=== PATIENT | male | born 1945 | race Caucasian/White ===

== ENCOUNTER 2017-09-28 11:28 | Inpatient (IN) | payer OTHER, MEDICARE, BC ==
[~2017-09-28] VITALS: Ht 180.3 cm; Wt 105.0 kg
[~2017-09-28 11:28] MED LIST: ALLO100T PO; ASPI-611 PO; GABA600T2 PO; LOSA25TA96 PO; TRIA1CAP6 PO
[2017-09-28] MEDS ORDERED: ATOR40TA PO (11:55)
[2017-09-28] MEDS ORDERED: DULO-31 PO (11:55)
[2017-09-28] MEDS ORDERED: TADA5TAB2 PO (11:55)
[2017-09-28 11:58] LABS: BASOPHILS % (AUTO) 0 % (0-1); EOSINOPHILS # (AUTO) 0.2 X10'3 (0-0.9); EOSINOPHILS % (AUTO) 1.3 % (0-6); LYMPHOCYTES # (AUTO) 0.8 X10'3 (1.1-4.8); LYMPHOCYTES % (AUTO) 6.3 % (21-51); MEAN CORPUSCULAR HEMOGLOBIN 31.8 PG (27.0-31.0); MEAN CORPUSCULAR HGB CONC 34.7 % (33.0-36.5); MEAN CORPUSCULAR VOLUME 91.7 FL (78-98); MEAN PLATELET VOLUME 8.6 FL (7.4-10.4); MONOCYTES # (AUTO) 1.1 X10'3 (0-0.9); MONOCYTES % (AUTO) 8.9 % (2-12); NEUTROPHILS # (AUTO) 10.7 X10'3 (1.8-7.7); NEUTROPHILS % (AUTO) 83.5 % (42-75); PLATELET COUNT 225 X10'3 (140-440); RED BLOOD COUNT 5.02 X10'6 (4.70-6.10); WHITE BLOOD COUNT 12.8 X10'3 (4.5-11.0)
[2017-09-28] MEDS ORDERED: nitroGLYCERIN 0.4mg SUBLingual tab SL PRN ×2 (12:00→19:55)
[2017-09-28 12:09] LABS: PARTIAL THROMBOPLASTIN TIME 26 SECONDS (22-32); PROTHROMBIN TIME 10.3 SECONDS (9.0-12.0)
[2017-09-28 12:22] LABS: ALANINE AMINOTRANSFERASE 51 U/L (12-78); ALBUMIN 4.2 G/DL (3.4-5.0); ALBUMIN/GLOBULIN RATIO 1.3 (1.1-1.5); ALKALINE PHOSPHATASE 122 IU/L (46-116); ANION GAP 8 (8-16); ASPARTATE AMINO TRANSFERASE 36 U/L (10-37); BILIRUBIN,TOTAL 0.9 MG/DL (0.1-1.0); BLOOD UREA NITROGEN 22 MG/DL (7-18); BUN/CREATININE RATIO 17.2 (5.4-32.0); CHLORIDE 101 MMOL/L (99-107); CREATININE 1.28 MG/DL (0.60-1.10); GLUCOSE 154 MG/DL (70-104); POTASSIUM 4.7 MMOL/L (3.5-5.1); SODIUM 139 MMOL/L (135-145); TOTAL CARBON DIOXIDE 29.7 MMOL/L (24-32); TOTAL PROTEIN 7.5 G/DL (6.4-8.2); eGFR 56 ML/MIN
[2017-09-28] MEDS ORDERED: diltiazem 5mg/ml 5ml inj. IV ONE (12:40)
[2017-09-28] MEDS: diltiazem-D5W 125mg/125ml 125 ML IV SCH (13:01)
[2017-09-28] MEDS ORDERED: METF500T PO (13:14)
[2017-09-28] MEDS ORDERED: AMIT-189 PO (13:14)
[2017-09-28] MEDS ORDERED: MULT-955 PO (13:14)
[2017-09-28] MEDS ORDERED: ondansetron/PF 4mg/2ml inj IV PRN (14:05)
[2017-09-28] MEDS ORDERED: mag hydrox/Alum hydrox/simeth 30ml oral suspension PO PRN (14:05)
[2017-09-28] MEDS ORDERED: acetaminophen 325mg tablet PO PRN (14:05)
[2017-09-28] MEDS ORDERED: morphine 2 MG/ML inj. syringe IV PRN ×2 (14:05)
[2017-09-28] MEDS ORDERED: magnesium hydroxide 30ml (MOM) UD suspension PO PRN (14:05)
[2017-09-28] MEDS: normal saline 1000ml 1,000 ML IV SCH (14:26)
[2017-09-28] MEDS: enoxaparin 100mg/ml syringe SUBCUT SCH ×2 (14:26→20:00)
[2017-09-28] MEDS ORDERED: amitryptiline 50mg tablet PO PRN (17:00)
[2017-09-28] MEDS ORDERED: amitryptiline 50mg tablet PO SCH (17:28)
[2017-09-28] MEDS ORDERED: metoprolol tartrate 1mg/ml inj IV PRN (19:55)
[2017-09-28] MEDS ORDERED: aminophylline 250mg/10ml inj. IV PRN (19:55)
[2017-09-28] MEDS ORDERED: regadenoson 0.4mg/5ml syringe IV PRN (19:55)
[2017-09-28] MEDS: gabapentin 300mg capsule PO SCH (20:34)
[2017-09-29] VITALS (11 sets, daily range): BP systolic 116–146; BP diastolic 56–76
[2017-09-29 07:16] LABS: BASOPHILS % (AUTO) 0.1 % (0-1); EOSINOPHILS # (AUTO) 0.2 X10'3 (0-0.9); HEMATOCRIT 43.1 % (42.0-52.0); LYMPHOCYTES % (AUTO) 11.4 % (21-51); MEAN CORPUSCULAR HGB CONC 34.8 % (33.0-36.5); MEAN CORPUSCULAR VOLUME 92.1 FL (78-98); MEAN PLATELET VOLUME 8.3 FL (7.4-10.4); MONOCYTES # (AUTO) 0.8 X10'3 (0-0.9); MONOCYTES % (AUTO) 9.6 % (2-12); NEUTROPHILS # (AUTO) 6.5 X10'3 (1.8-7.7); NEUTROPHILS % (AUTO) 76.9 % (42-75); PLATELET COUNT 200 X10'3 (140-440); RED BLOOD COUNT 4.68 X10'6 (4.70-6.10); WHITE BLOOD COUNT 8.4 X10'3 (4.5-11.0)
[2017-09-29 07:38] LABS: ALBUMIN 3.6 G/DL (3.4-5.0); ANION GAP 10 (8-16); BLOOD UREA NITROGEN 17 MG/DL (7-18); BUN/CREATININE RATIO 16.5 (5.4-32.0); CALCIUM 8.4 MG/DL (8.5-10.1); CHLORIDE 104 MMOL/L (99-107); CREATININE 1.03 MG/DL (0.60-1.10); GLUCOSE 116 MG/DL (70-104); POTASSIUM 3.8 MMOL/L (3.5-5.1); SODIUM 140 MMOL/L (135-145); TOTAL CARBON DIOXIDE 26.2 MMOL/L (24-32); eGFR 71 ML/MIN
[2017-09-29] MEDS: allopurinol 300 MG tablet PO SCH ×3 (08:00→14:18)
[2017-09-29] MEDS: enoxaparin 100mg/ml syringe SUBCUT SCH (08:00)
[2017-09-29] MEDS: diltiazem-D5W 125mg/125ml 125 ML IV SCH (08:26)
[2017-09-29] MEDS ORDERED: metoprolol succinate 25mg (24-HOUR) SR. Tablet PO SCH (08:35)
[2017-09-29] MEDS: aspirin 81mg tab.chew PO SCH ×2 (09:04→13:16)
[2017-09-29] MEDS: normal saline 1000ml 1,000 ML IV SCH (09:04)
[2017-09-29] MEDS: atorvastatin 20mg tablet PO SCH ×2 (09:05→13:16)
[2017-09-29] MEDS: gabapentin 300mg capsule PO SCH ×2 (09:06→13:21)
[2017-09-29] MEDS: multivitamins, therapeutics tablet PO SCH ×2 (09:07→13:16)
[2017-09-29] MEDS ORDERED: regadenoson 0.4mg/5ml syringe IV ONE (11:33)
[2017-09-29] MEDS ORDERED: aminophylline inj. 0 ML IV ONE (11:33)
[2017-09-29] MEDS ORDERED: losartan 50mg tablet PO SCH (14:00)
[2017-09-29] MEDS ORDERED: METO-539 PO (16:20)
[2017-09-29] MEDS ORDERED: APIX5TAB3 PO (16:20)
== END 2017-09-29 16:35 | disposition home or self-care (01) | DRG 309 ==
LOC: ER 11:28 → ED HOLD 14:06
PROVIDERS: ADMIT Family Medicine; ATTEND Family Medicine
PROC: 4A02XM4 Measurement of Cardiac Total Activity, External Approach (ICD-10-PCS; principal; 2017-09-29)
PROC: 3E073KZ Introduction of Other Diagnostic Substance into Coronary Artery, Percutaneous Approach (ICD-10-PCS; 2017-09-29)
DX: I48.91 Unspecified atrial fibrillation (principal); N17.9 Acute kidney failure, unspecified; G62.9 Polyneuropathy, unspecified; M10.9 Gout, unspecified; E78.00 Pure hypercholesterolemia, unspecified; I10 Essential (primary) hypertension; E78.5 Hyperlipidemia, unspecified; R73.03 Prediabetes; R07.89 Other chest pain; Z88.5 Allergy status to narcotic agent; Z72.89 Other problems related to lifestyle; Z87.891 Personal history of nicotine dependence
CPT/HCPCS: 36415; 71045; 78452; 80048; 80053; 83880; 84484; 85025; 85610; 85730; 87070; 93005; 93017; 93306; 96365; 99285; A9500; J0280; J1650; J3490; J7030

== ENCOUNTER 2018-09-06 08:29 | Inpatient (IN) | payer MEDICARE, BC, OTHER | END 2018-09-12 11:30 | disposition home or self-care (01) | LOC: ICU 2S 09-08 16:20 → ORTHO 4S 09-09 12:19 → PCU 3S 09-10 10:35 → PAS IN 08:29 → ORTHO 4S 14:30 | PROC: 0SRC0J9 Replacement of Right Knee Joint with Synthetic Substitute, Cemented, Open Approach (ICD-10-PCS; principal; 2018-09-06 09:58) | DX: M17.11 Unilateral primary osteoarthritis, right knee (principal); D62 Acute posthemorrhagic anemia; K56.7 Ileus, unspecified ==

== ENCOUNTER 2018-11-14 08:54 | Day surgery (SDC) | payer MEDICARE, BC, OTHER ==
[2018-11-13 13:15] LABS: BASOPHILS # (AUTO) 0.1 X10'3 (0-0.2); BASOPHILS % (AUTO) 0.7 % (0-1); EOSINOPHILS # (AUTO) 0.2 X10'3 (0-0.9); EOSINOPHILS % (AUTO) 1.6 % (0-6); HEMATOCRIT 42.2 % (42.0-52.0); HEMOGLOBIN 14.4 g/dl (14.0-17.9); LYMPHOCYTES # (AUTO) 1.8 X10'3 (1.1-4.8); LYMPHOCYTES % (AUTO) 18.9 % (21-51); MEAN CORPUSCULAR HEMOGLOBIN 29.9 PG (27.0-31.0); MEAN CORPUSCULAR VOLUME 87.8 FL (78-98); MEAN PLATELET VOLUME 8.9 FL (7.4-10.4); MONOCYTES % (AUTO) 10.1 % (2-12); NEUTROPHILS # (AUTO) 6.7 X10'3 (1.8-7.7); NEUTROPHILS % (AUTO) 68.7 % (42-75); PLATELET COUNT 233 X10'3 (140-440); RED BLOOD COUNT 4.81 X10'6 (4.70-6.10); RED CELL DISTRIBUTION WIDTH 15.9 % (11.5-14.5); WHITE BLOOD COUNT 9.7 X10'3 (4.5-11.0)
[2018-11-13 13:24] LABS: ALBUMIN 3.8 G/DL (3.4-5.0); ANION GAP 7 (8-16); BLOOD UREA NITROGEN 18 MG/DL (7-18); BUN/CREATININE RATIO 16.4 (5.4-32.0); CALCIUM 8.8 MG/DL (8.5-10.1); CHLORIDE 103 MMOL/L (99-107); GLUCOSE 121 MG/DL (70-104); POTASSIUM 4.1 MMOL/L (3.5-5.1); SODIUM 140 MMOL/L (135-145); TOTAL CARBON DIOXIDE 30.1 MMOL/L (24-32); eGFR 66 ML/MIN
[2018-11-13 13:50] LABS: INR 1.1 INR
[2018-11-14] VITALS (28 sets, daily range): BP systolic 103–150; BP diastolic 53–99
[~2018-11-14] VITALS: Ht 180.3 cm; Wt 98.2 kg
[~2018-11-14 08:54] MED LIST changes: -ASPI-611 PO; +DILT180C66 PO; +GABA600T13 PO; -GABA600T2 PO; +METO-395 PO; +MULT-955 PO
[2018-11-14] MEDS ORDERED: ATOR40TA PO (09:26)
[2018-11-14] MEDS ORDERED: AMIT10TA6 PO (09:30)
[2018-11-14] MEDS ORDERED: CYAN100087 PO (09:30)
[2018-11-14] MEDS ORDERED: APIX5TAB3 PO (09:30)
[2018-11-14] MEDS ORDERED: SOTA80TA73 PO (09:30)
[2018-11-14] MEDS ORDERED: DILT180C10 PO (09:30)
[2018-11-14] MEDS ORDERED: normal saline 1000ml 1,000 ML IV SCH (09:45)
[2018-11-14] MEDS ORDERED: amiodarone in dextrose, iso-osm 150mg/100ml bag IV ONE (09:45)
[2018-11-14] MEDS ORDERED: atropine 0.1mg/ml 10ml syringe IV ONE (09:45)
[2018-11-14] MEDS ORDERED: MIDAZolam 5mg/ml 2ml vial IV ONE (09:45)
[2018-11-14] MEDS ORDERED: morphine 10mg/ml inj. IV ONE (09:50)
== END 2018-11-14 14:00 | disposition home or self-care (01) ==
LOC: SSTAY O 08:54
PROVIDERS: ATTEND Internal Medicine Cardiovascular Disease
DX: I48.0 Paroxysmal atrial fibrillation (principal); E11.9 Type 2 diabetes mellitus without complications; I10 Essential (primary) hypertension; E78.5 Hyperlipidemia, unspecified; Z87.891 Personal history of nicotine dependence; Z79.899 Other long term (current) drug therapy; Z96.612 Presence of left artificial shoulder joint; Z96.651 Presence of right artificial knee joint
CPT/HCPCS: 36415; 80048; 85025; 85610; 92960; 93005; J0282; J0461; J2250; J2270; J7030

== ENCOUNTER 2019-01-09 17:41 | Observation (INO) | payer MEDICARE, BC, OTHER ==
[~2019-01-09] VITALS: Ht 180.3 cm; Wt 98.6 kg
[~2019-01-09 17:41] MED LIST changes: +AMIT10TA6 PO; +APIX5TAB3 PO; +ATOR40TA PO; +CYAN100087 PO; +DILT180C10 PO; -DILT180C66 PO; -METO-395 PO; +SOTA80TA73 PO
[2019-01-09 18:34] LABS: BASOPHILS # (AUTO) 0.1 X10'3 (0-0.2); BASOPHILS % (AUTO) 0.7 % (0-1); EOSINOPHILS # (AUTO) 0.1 X10'3 (0-0.9); EOSINOPHILS % (AUTO) 1.1 % (0-6); HEMATOCRIT 42.8 % (42.0-52.0); HEMOGLOBIN 14.6 g/dl (14.0-17.9); LYMPHOCYTES # (AUTO) 1.9 X10'3 (1.1-4.8); LYMPHOCYTES % (AUTO) 17.2 % (21-51); MEAN CORPUSCULAR HEMOGLOBIN 29.9 PG (27.0-31.0); MEAN CORPUSCULAR HGB CONC 34.2 g/dL (33.0-36.5); MEAN CORPUSCULAR VOLUME 87.6 FL (78-98); MEAN PLATELET VOLUME 9.1 FL (7.4-10.4); MONOCYTES # (AUTO) 1.3 X10'3 (0-0.9); NEUTROPHILS # (AUTO) 7.6 X10'3 (1.8-7.7); PLATELET COUNT 228 X10'3 (140-440); RED BLOOD COUNT 4.89 X10'6 (4.70-6.10); RED CELL DISTRIBUTION WIDTH 15.6 % (11.5-14.5)
[2019-01-09 18:47] LABS: PARTIAL THROMBOPLASTIN TIME 30 SECONDS (22-32)
[2019-01-09 18:49] LABS: ALANINE AMINOTRANSFERASE 35 U/L (12-78); ALBUMIN 4.1 G/DL (3.4-5.0); ALBUMIN/GLOBULIN RATIO 1.3 (1.1-1.5); ALKALINE PHOSPHATASE 121 IU/L (46-116); ANION GAP 8 (8-16); ASPARTATE AMINO TRANSFERASE 27 U/L (10-37); BILIRUBIN,TOTAL 0.6 MG/DL (0.1-1.0); BLOOD UREA NITROGEN 40 MG/DL (7-18); BUN/CREATININE RATIO 17.5 (5.4-32.0); CHLORIDE 101 MMOL/L (99-107); CREATININE 2.29 MG/DL (0.60-1.10); GLUCOSE 111 MG/DL (70-104); POTASSIUM 4.1 MMOL/L (3.5-5.1); SODIUM 135 MMOL/L (135-145); TOTAL CARBON DIOXIDE 25.8 MMOL/L (24-32); TOTAL PROTEIN 7.3 G/DL (6.4-8.2); eGFR 28 ML/MIN
[2019-01-09] MEDS ORDERED: METO-539 PO (19:16)
[2019-01-09] MEDS ORDERED: FLEC50TA26 PO (19:16)
[2019-01-09] MEDS ORDERED: DILT180T11 PO (19:16)
[2019-01-09] MEDS ORDERED: PSYL0.4C2 PO (19:16)
[2019-01-09] MEDS ORDERED: normal saline 1000ML IV soln IVB ONE (21:10)
--- NOTE | 2019-01-09 23:32 | NUR ---
DR WISEMAN AT BEDSIDE WITH PT
[2019-01-10] MEDS ORDERED: ondansetron/PF 4mg/2ml inj IV PRN (00:15)
[2019-01-10] MEDS ORDERED: mag hydrox/Alum hydrox/simeth 30ml oral suspension PO PRN (00:15)
[2019-01-10] MEDS ORDERED: magnesium hydroxide 30ml (MOM) UD suspension PO PRN (00:15)
[2019-01-10 01:00] VITALS: BP 139/69
--- NOTE | 2019-01-10 01:00 | NUR ---
Patient in room PCU 3023. I have received report from Jyoti JIMÉNEZ and had the opportunity to ask questions and assume patient care. recieved pt on floor at this time with all his belongings. Addendum: 01/10/19 at 0119 by Stephen Doe RN VS stable, telemetry on pt, no chest pain noted by pt
[2019-01-10 01:04] LABS: HEMOGLOBIN A1C 6.1 % (4.5-6.2)
[2019-01-10 02:00] VITALS: BP 122/74
[2019-01-10 06:00] VITALS: BP 114/75
--- NOTE | 2019-01-10 06:20 | NUR ---
Patient in room PCU 3023. I have received report from Allyson/Eavn RN and had the opportunity to ask questions and assume patient care.
--- NOTE | 2019-01-10 06:41 | NUR ---
Problems reprioritized. Patient report given, questions answered & plan of care reviewed with Dustin LOPEZ.
--- NOTE | 2019-01-10 06:44 | NUR ---
oRIENTEE documentation: I have reviewed and agree with all interventions, assessments performed and documented by BLANQUITA RN. Medication Administration: For this medication-pass time frame, all medication were reviewed, dispensed, administered and documented per hospital policy by .
[2019-01-10] MEDS: allopurinol 300 MG tablet PO SCH (07:35)
[2019-01-10] MEDS: atorvastatin 20mg tablet PO SCH (07:35)
[2019-01-10] MEDS: apixaban 5mg tablet PO SCH ×2 (07:36→20:16)
[2019-01-10] MEDS ORDERED: metoprolol succinate 25mg (24-HOUR) SR. Tablet PO SCH (08:00)
[2019-01-10] MEDS ORDERED: losartan 50mg tablet PO SCH (08:00)
[2019-01-10] MEDS ORDERED: diltiazem CD 180mg cap (once-daily) PO SCH (08:00)
--- NOTE | 2019-01-10 08:30 | NUR ---
Per Dr. Landa orders. Pts morning Cardizem 180mg and Cozaar 100mg held. Pts Toprol 25 mg given.
[2019-01-10 09:36] LABS: ALBUMIN 3.7 G/DL (3.4-5.0); ANION GAP 3 (8-16); BLOOD UREA NITROGEN 31 MG/DL (7-18); BUN/CREATININE RATIO 19.9 (5.4-32.0); CALCIUM 8.6 MG/DL (8.5-10.1); CHLORIDE 105 MMOL/L (99-107); CREATININE 1.56 MG/DL (0.60-1.10); GLUCOSE 119 MG/DL (70-104); MAGNESIUM 1.9 MG/DL (1.5-2.4); PHOSPHORUS 3.1 MG/DL (2.3-4.5); POTASSIUM 4.2 MMOL/L (3.5-5.1); SODIUM 138 MMOL/L (135-145); eGFR 44 ML/MIN
[2019-01-10 11:11] VITALS: BP 117/62
--- NOTE | 2019-01-10 12:10 | NUR ---
PAGER ID: [phone] MESSAGE: RE: Randy Allred. Room: 3023C. Morning BMP, Mag and Phos now posted. -[facility] #[id number] Dr. Landa paged concerning Pts new Labs
[2019-01-10] MEDS ORDERED: metoprolol tartrate 12.5mg (1/2 tablet) PO PRN (12:15)
[2019-01-10 15:15] VITALS: BP 136/76
--- NOTE | 2019-01-10 18:20 | NUR ---
Problems reprioritized. Patient report given, questions answered & plan of care reviewed with Oscar LOPEZ.
[2019-01-10 22:00] VITALS: BP 155/76
--- NOTE | 2019-01-10 22:50 | NUR ---
Patient in room PCU 3023. I have received report from Dustin LOPEZ and had the opportunity to ask questions and assume patient care.
[2019-01-11 02:00] VITALS: BP 142/71
[2019-01-11 06:00] VITALS: BP 151/89
[2019-01-11 06:11] LABS: BASOPHILS % (AUTO) 0.4 % (0-1); EOSINOPHILS # (AUTO) 0.1 X10'3 (0-0.9); EOSINOPHILS % (AUTO) 1.1 % (0-6); HEMATOCRIT 43.3 % (42.0-52.0); HEMOGLOBIN 14.7 g/dl (14.0-17.9); LYMPHOCYTES # (AUTO) 1.1 X10'3 (1.1-4.8); LYMPHOCYTES % (AUTO) 15.1 % (21-51); MEAN CORPUSCULAR HEMOGLOBIN 29.9 PG (27.0-31.0); MEAN CORPUSCULAR VOLUME 87.9 FL (78-98); MEAN PLATELET VOLUME 9.4 FL (7.4-10.4); MONOCYTES # (AUTO) 0.7 X10'3 (0-0.9); MONOCYTES % (AUTO) 9.8 % (2-12); NEUTROPHILS # (AUTO) 5.5 X10'3 (1.8-7.7); NEUTROPHILS % (AUTO) 73.6 % (42-75); PLATELET COUNT 196 X10'3 (140-440); RED BLOOD COUNT 4.93 X10'6 (4.70-6.10); RED CELL DISTRIBUTION WIDTH 15.4 % (11.5-14.5); WHITE BLOOD COUNT 7.5 X10'3 (4.5-11.0)
[2019-01-11 06:25] LABS: ALANINE AMINOTRANSFERASE 32 U/L (12-78); ALBUMIN 3.8 G/DL (3.4-5.0); ALBUMIN/GLOBULIN RATIO 1.2 (1.1-1.5); ALKALINE PHOSPHATASE 113 IU/L (46-116); ANION GAP 6 (8-16); ASPARTATE AMINO TRANSFERASE 22 U/L (10-37); BILIRUBIN,TOTAL 0.7 MG/DL (0.1-1.0); BLOOD UREA NITROGEN 20 MG/DL (7-18); BUN/CREATININE RATIO 17.9 (5.4-32.0); CALCIUM 8.9 MG/DL (8.5-10.1); CHLORIDE 105 MMOL/L (99-107); CREATININE 1.12 MG/DL (0.60-1.10); GLUCOSE 99 MG/DL (70-104); SODIUM 138 MMOL/L (135-145); TOTAL CARBON DIOXIDE 27.2 MMOL/L (24-32); TOTAL PROTEIN 7.1 G/DL (6.4-8.2); eGFR 65 ML/MIN
[2019-01-11] MEDS: atorvastatin 20mg tablet PO SCH (08:50)
[2019-01-11] MEDS: apixaban 5mg tablet PO SCH (08:50)
[2019-01-11] MEDS: allopurinol 300 MG tablet PO SCH (08:50)
--- NOTE | 2019-01-11 10:06 | NUR ---
I SPOKE TO DR SHANNON OFFICE BY REQUEST OF DR DUNHAM. DR DUNHAM WANTED TO KNOW IF DR SHANNON'S PA WOULD LIKE PT TO STOP BY OFFICE TODAY ALL OF PT AFIB MEDS HAVE BEEN STOPPED. OFFICE SAID THAT THERE IS NO NEED FOR PT TO COME BY PT WILL BE AT THE OFFICE @929.
--- NOTE | 2019-01-11 11:53 | NUR ---
PT DISCHARGED IN STABLE CONDITION. LEFT FACILITY WITH IN PRIVATE VEHICLE. IV DC CANULA INTACT. ALL BELONGINGS IN HAND. FOLLOW UP INSTRUCTIONS GIVEN, ALL QUESTIONS ANSWERED. Addendum: 01/11/19 at 1154 by Fany Martin RN Amended: Links added.
== END 2019-01-11 11:25 | disposition home or self-care (01) ==
LOC: ER 17:41 → PCU 3S 01-10 00:55 → CMPBEDREQ 01-10 01:53
PROVIDERS: ADMIT Internal Medicine; ATTEND Hospitalist
DX: R55 Syncope and collapse (principal); R00.1 Bradycardia, unspecified; I95.9 Hypotension, unspecified; E78.00 Pure hypercholesterolemia, unspecified; I12.9 Hypertensive chronic kidney disease with stage 1 through stage 4 chronic kidney disease, or unspecified chronic kidney disease; N18.9 Chronic kidney disease, unspecified; I48.91 Unspecified atrial fibrillation; Z79.01 Long term (current) use of anticoagulants
CPT/HCPCS: 36415; 71045; 80048; 80053; 83036; 83735; 84100; 84484; 85025; 85610; 85730; 87070; 93005; 99284; G0378

== ENCOUNTER 2022-11-18 12:38 | Emergency (ER) | payer BC, MEDICARE, OTHER ==
[~2022-11-18] VITALS: Ht 180.3 cm; Wt 100.0 kg
[~2022-11-18 12:38] MED LIST changes: -AMIT10TA6 PO; -CYAN100087 PO; -DILT180C10 PO; -LOSA25TA96 PO; +PSYL0.4C2 PO; -SOTA80TA73 PO; -TRIA1CAP6 PO
[2022-11-18] MEDS ORDERED: fentaNYL/PF 50MCG/1 ML 2ML syringe IV ONE ×2 (12:50→14:47)
--- NOTE | 2022-11-18 12:54 | NUR ---
Dr. Rosario and CRIS Mcadams at bedside doing manual reduction
[2022-11-18] MEDS ORDERED: propofol 10mg/ml 20ml vial IV ONE (13:00)
--- NOTE | 2022-11-18 13:31 | NUR ---
s/p right shoulder closed reduction performed by Dr. Rosario assisted by PA at bedside. RT and primary RN at bedside. Patient had difficulty breathing after the Profofol was given, O2 sat dropped to low 80%. Manual bagging done by RT at bedside. Patient O2 sat went up to 95% when manual bagging was done. Vitals signs monitored closely. was at bedside before and after the procedure was performed. Patient stated right shoulder pain currently 5/10. Patient alert slightly drowsy but can hold conversation with his at bedside.
--- NOTE | 2022-11-18 13:37 | NUR ---
Profopol [address] Rosario
--- NOTE | 2022-11-18 15:56 | NUR ---
Patient a/o x4, 01/07 but acceptable per patient.
--- NOTE | 2022-11-18 16:09 | NUR ---
I asked Dr. Yeboah if we can get a written script for pain medicine for this patient as per patient request before getting discharge. Dr. Yeboah said patient can take Tylenol at home. I notified the patient and his at bedside that Dr. Yeboah advised pt to take Tylenol for pain at home. and patient told me that they might just try Aleve instead for pain
[2022-11-18] MEDS ORDERED: OXYC-150 PO (16:12)
[2022-11-18] MEDS ORDERED: oxyCODONE/APAP 10/325mg tablet PO ONE (16:15)
== END 2022-11-18 16:38 | disposition home or self-care (01) ==
LOC: ER 12:38
DX: S43.004A Unspecified dislocation of right shoulder joint, initial encounter (principal); I10 Essential (primary) hypertension; E78.00 Pure hypercholesterolemia, unspecified; Z88.5 Allergy status to narcotic agent; Z88.6 Allergy status to analgesic agent; W01.0XXA Fall on same level from slipping, tripping and stumbling without subsequent striking against object, initial encounter; Y93.89 Activity, other specified; Y92.89 Other specified places as the place of occurrence of the external cause; Y99.8 Other external cause status
CPT/HCPCS: 23650; 73020; 96374; 99152; 99153; 99285; J3010; 94760; A4565; A4615

== ENCOUNTER 2023-10-30 14:48 | Outpatient (CLI) | payer OTHER ==
[~2023-10-30 14:48] MED LIST changes: +OXYC-150 PO
== END 2023-10-30 23:59 | disposition home or self-care (01) ==
LOC: RAD 14:48
PROVIDERS: ATTEND Chiropractor
DX: I08.8 Other rheumatic multiple valve diseases (principal); I25.9 Chronic ischemic heart disease, unspecified
CPT/HCPCS: 93306